=== PATIENT | male | born 1965 | race Two or more races ===

== ENCOUNTER 2018-03-23 10:48 | Outpatient (CLI) | payer SELFPAY | END 2018-03-23 23:59 | disposition home health service (06) | LOC: WOU 10:48 | PROVIDERS: ATTEND Specialist | DX: T86.821 Skin graft (allograft) (autograft) failure (principal); Z89.431 Acquired absence of right foot; E11.40 Type 2 diabetes mellitus with diabetic neuropathy, unspecified; L97.512 Non-pressure chronic ulcer of other part of right foot with fat layer exposed | CPT/HCPCS: 11042; 87070-TC; 87075-TC; A6210; A6402; Z7610 ==